=== PATIENT | female | born 1990 | race Caucasian/White ===

== ENCOUNTER 2019-07-30 22:37 | Inpatient (IN) | payer MEDICAID ==
[~2019-07-30] VITALS: Ht 154.9 cm; Wt 62.6 kg
--- NOTE | 2019-07-30 22:30 | NUR ---
UNDERWEAR CUTTER NOTE PT ARRIVED FROM [facility] VIA GURNEY ACCOMPANIED BY AMBULANCE STAFF AND MOTHER. PT IN STABLE CONDITION A/O X1, MINIMALLY COMMUNICATING WITH STAFF. NO SIGNS OF SOB OR DISTRESS, NO INDICATION OF PAIN OR N/V. IV IN L AC #[address] ALL CURRENT NEEDS ATTENDED TO. BED LOW, LOCKED, UPPER RAILS UP, AND CALL LIGHT WITHIN REACH. WILL CONT. TO MONITOR. BODY ASSESSED SKIN INTACT, PT BELONGINGS ACCOUNTED AND SIGNED FOR. NO HOME MEDICATIONS INDICATED FROM [facility].
[2019-07-31] MEDS ORDERED: MAG HYDROX/AL HYDROX/SIMETH 30 ML UDC PO PRN (00:30)
[2019-07-31] MEDS ORDERED: Z GUARD REMEDY 2 OZ OINT TP PRN (00:30)
[2019-07-31] MEDS ORDERED: HYDROCODONE/APAP 5/325MG 1 EACH TABLET PO PRN (00:30)
[2019-07-31] MEDS ORDERED: ACETAMINOPHEN 325 MG TABLET PO PRN (00:30)
[2019-07-31] MEDS ORDERED: MAGNESIUM HYDROXIDE 30 ML UDC PO PRN (00:30)
[2019-07-31] MEDS ORDERED: ONDANSETRON HCL/PF 4 MG/2 ML VIAL IVP PRN (00:30)
[2019-07-31] MEDS ORDERED: ZOLPIDEM TARTRATE 5 MG TABLET PO PRN (00:30)
[2019-07-31] MEDS: IV D5/0.45 NACL 1,000 ML IV PRN ×2 (00:48→17:37)
[2019-07-31 01:10] LABS: BASOPHILS # (AUTO) 0.1 /CMM (0.0-0.2); BASOPHILS % (AUTO) 1.1 % (0.0-2.0); EOSINOPHILS % (AUTO) 0.5 % (0.0-6.0); HEMATOCRIT 35 % (33-45); HEMOGLOBIN 11.1 g/dL (11.5-14.8); LYMPHOCYTES # (AUTO) 1.2 /CMM (0.8-4.8); LYMPHOCYTES % (AUTO) 16.2 % (20.0-44.0); MEAN CORPUSCULAR HGB CONC 32 g/dl (31.0-36.0); MEAN CORPUSCULAR VOLUME 82 fL (82-100); MONOCYTES # (AUTO) 0.5 /CMM (0.1-1.30); MONOCYTES % (AUTO) 6.9 % (2.0-12.0); NEUTROPHILS # (AUTO) 5.6 /CMM (1.8-8.9); NEUTROPHILS % (AUTO) 75.3 % (43.0-81.0); PLATELET COUNT (AUTO) 339 /CMM (150-450); WHITE BLOOD COUNT (AUTO) 7.5 K/uL (4.3-11.0)
[2019-07-31 01:22] LABS: ALBUMIN 3.5 g/dL (3.4-5.0); BILIRUBIN,TOTAL 0.5 mg/dL (0.2-1.0); CALCIUM, SERUM 8.6 mg/dL (8.5-10.1); CREATININE 0.6 mg/dL (0.6-1.3); POTASSIUM 3.5 mmol/L (3.5-5.1); TOTAL PROTEIN, SERUM 6.8 g/dL (6.4-8.2)
[2019-07-31 04:00] VITALS: BP 116/84
--- NOTE | 2019-07-31 06:36 | NUR ---
MOBILITY SPECIALIST NOTE PT IN STABLE CONDITION A/O X1, NOTED IN BED WITH MOM AT BEDSIDE. NO SIGNS OF SOB OR DISTRESS, NO INDICATION OF PAIN OR N/V. IV IN L AC #[address] WITH IVF INFUSING. TELE MONITOR: SR. ALL CURRENT NEEDS ATTENDED TO. BED LOW, LOCKED, UPPER RAILS UP, AND CALL LIGHT WITHIN REACH. WILL CONT. TO MONITOR AND ENDORSE TO NEXT SHIFT FOR ABBY.
--- NOTE | 2019-07-31 07:30 | NUR ---
RN NOTES received patient. asleep, does not open eyes when called, bilateral pupils briskly react to light. patient reacts to pain. not on any form of distress, on room air breathing even and unlabored. sinus tachy on the monitor with hr on the low 100s. iv site on the left arm with ongoing d51/2 ns at 75cc/hr. safety measures observed and maintained. [id number]. bed in low and locked position. call light within reach. patient's mother at bedside. will continue to monitor patient accordingly
[2019-07-31 08:00] VITALS: BP 125/80
--- NOTE | 2019-07-31 09:00 | NUR ---
RN NOTES patient's mom at bedside crying and was asking on why does the patient does not talk. patient aat this time is awake, opens eye spontaneously. patient with episodes of stiffening the body and holding breath. vital signs are within normal ranges. hospitalistSheree DNP made aware. patient monitored accordingly
[2019-07-31] MEDS: PANTOPRAZOLE 40 MG VIAL IV SCH (09:46)
[2019-07-31] MEDS ORDERED: ONDANSETRON HCL/PF 4 MG/2 ML VIAL IV PRN (11:00)
--- NOTE | 2019-07-31 11:00 | NUR ---
RN NOTES patient seen and examined by MADAI Buckley. with orders made and carried out
[2019-07-31] MEDS: LORAZEPAM INJ 2 MG/ML VIAL IV PRN (11:03)
[2019-07-31 12:00] VITALS: BP 124/85
[2019-07-31 16:00] VITALS: BP 105/69
--- NOTE | 2019-07-31 19:31 | NUR ---
RN NOTES endorsed for continuity of care. not on any form of distress. no shortness of breath. no complaints of pain. family at bedside, concerns addressed appropriately. safety measures in plaace. call light within reach
--- NOTE | 2019-07-31 19:45 | NUR ---
ASSEMBLY WORKER NOTES, RECEIVED PATIENT AWAKE IN BED, BREATHING EVEN AND UNLABORED, NO SOB/ACUTE DISTRESS NOTED AT ROOM AIR, NO C/O PAIN OR DISCOMFORT, SINUS TACHY IN TELE MONITOR AT THIS TIME, WITH HR 110S AT THIS TIME, PATIENT NODS HEAD JUST FOR YES/NO QUESTIONS, PATIENT USING GAG REFLEX AT TIMES BUT RESIST TO SPIT SECRETIONS, OM AT BEDSIDE TRYING TO HELP HER TO SPIT IT OUT,AND ENCOURAGED PATIENT TO SPIT SECRETIONS OUT, LEFT AC IV ACCESS, WITH D5 1/2 NS INFUSING ORDERED, NO SIGNS OF INFILTRATION NOTED, PATIENT TOLERATED WELL, CALL LIGHT WITHIN REACH, FAMILY AT BEDSIDE, BED LOCKED AND LOWEST POSITION, WILL CONTINUE TO MONITOR CLOSELY.
[2019-07-31 20:00] VITALS: BP 118/74
[2019-08-01] VITALS: BP 121/73
[2019-08-01 04:00] VITALS: BP 126/80
[2019-08-01] MEDS: IV D5/0.45 NACL 1,000 ML IV PRN ×2 (05:30→20:03)
[2019-08-01 06:36] LABS: BASOPHILS % (AUTO) 0.2 % (0.0-2.0); EOSINOPHILS % (AUTO) 0.5 % (0.0-6.0); HEMATOCRIT 36 % (33-45); HEMOGLOBIN 11.4 g/dL (11.5-14.8); LYMPHOCYTES # (AUTO) 1.3 /CMM (0.8-4.8); LYMPHOCYTES % (AUTO) 18.5 % (20.0-44.0); MEAN CORPUSCULAR HGB CONC 32 g/dl (31.0-36.0); MEAN CORPUSCULAR VOLUME 82 fL (82-100); MONOCYTES # (AUTO) 0.5 /CMM (0.1-1.30); MONOCYTES % (AUTO) 6.7 % (2.0-12.0); NEUTROPHILS # (AUTO) 5.2 /CMM (1.8-8.9); NEUTROPHILS % (AUTO) 74.1 % (43.0-81.0); PLATELET COUNT (AUTO) 360 /CMM (150-450); RED BLOOD CELL COUNT(AUTO) 4.38 MIL/uL (4.0-5.2)
[2019-08-01 06:39] LABS: CALCIUM, SERUM 8.8 mg/dL (8.5-10.1); CREATININE 0.5 mg/dL (0.6-1.3); MAGNESIUM 2.1 mg/dL (1.8-2.4); PHOSPHORUS 3.1 mg/dL (2.5-4.9); POTASSIUM 3.3 mmol/L (3.5-5.1)
[2019-08-01 06:40] LABS: THYROID STIMULATING HORMONE 1.55 uIU/mL (0.358-3.74)
--- NOTE | 2019-08-01 06:52 | NUR ---
INDUSTRIAL BOILERMAKER NOTES, PATIENT AWAKE AT THIS TIME, BREATHING EVEN AND UNLABORED, NO SOB/ACUTE DISTRESS NOTED AT THIS TIME, NO SIGNIFICANT CHANGE IN CONDITION DURING THE NIGHT, IV SITE RIGHT AC PATENT AND INTACT AND IVF INFUSING WELL AND PATIENT TOLERATED WELL, BED LOCKED AND LOWEST POSITION, MOM AT BEDSIDE, WILL ENDORSE TO ONCOMING NURSE FOR CONTINUITY OF CARE.
[2019-08-01 08:00] VITALS: BP 122/83
[2019-08-01] MEDS: PANTOPRAZOLE 40 MG VIAL IV SCH (09:01)
[2019-08-01] MEDS ORDERED: POTASSIUM CHLORIDE 20 MEQ TAB.PRT.SR PO SCH (11:00)
--- NOTE | 2019-08-01 11:00 | NUR ---
RN NOTES PATIENT ABLE TO SWALLOW EFFECTIVELY THE JELLO AND WATER THAT WAS OFFERED TO HER. HOSPITALIST INFORMED AND OKAY WITH ORDER FOR REGULAR DIET
[2019-08-01 12:00] VITALS: BP 127/82
[2019-08-01] MEDS: LORAZEPAM INJ 2 MG/ML VIAL IV PRN ×2 (12:55→22:04)
[2019-08-01] MEDS ORDERED: POTASSIUM CHLORIDE 20 MEQ TAB.PRT.SR PO ONE (13:00)
[2019-08-01] MEDS ORDERED: MULT-24 PO (14:00)
[2019-08-01] MEDS ORDERED: ACET-2605 PO (14:00)
[2019-08-01 16:00] VITALS: BP 109/73
[2019-08-01] MEDS: ESCITALOPRAM OXALATE (10 MG) 10 MG TABLET PO SCH (17:24)
--- NOTE | 2019-08-01 18:00 | NUR ---
RN NOTES PATIENT ABLE TO WALK FROM BED TO THE RESTROOM WITH STABLE GAIT.
--- NOTE | 2019-08-01 19:30 | NUR ---
ANNEALING OVEN OPERATOR NOTES, RECEIVED PATIENT AWAKE IN BED, BREATHING EVEN AND UNLABORED, NO SOB/ACUTE DISTRESS NOTED AT ROOM AIR, NO C/O PAIN OR DISCOMFORT, SINUS TACHY IN TELE MONITOR AT THIS TIME, WITH HR FLUCTUATING, 110S-120S AT THIS TIME, ANSWER YES/NO AND SIMPLE QUESTIONS, LEFT AC IV ACCESS, WITH D5 1/2 NS INFUSING ORDERED, NO SIGNS OF INFILTRATION NOTED, PATIENT TOLERATED WELL, CALL LIGHT WITHIN REACH, MOM AT BEDSIDE, BED LOCKED AND LOWEST POSITION, WILL CONTINUE TO MONITOR CLOSELY.
[2019-08-01 20:00] VITALS: BP 120/82
[2019-08-01] MEDS ORDERED: ARIPIPRAZOLE 5 MG TABLET PO SCH (22:00)
--- NOTE | 2019-08-01 22:20 | NUR ---
RN NOTES, RECEIVED CALL FROM DR HENRY PSYCH AND ORDER TO PLACED ORDER FOR ABILIFY 5MG PO QHS, NOTED AND CARRIED OUT, ALSO INFORMED MD THAT I JUST WITNESS A SITUATION JUST 5 MIN AGO, WHERE THE PATIENT STATED DIDN'T KNOW HER NAME, DENIES THAT MOM AT BEDSIDE WAS HER MOM, DENIES THAT HAVE FAMILY DAD AND BROTHERS, I ASKED HER HER NAME, AND ANOTHER QUESTIONS AND COULDN'T ANSWER THOSE, WHILE SHE WAS TELLING THIS TO MOM, MOM STATED " GET OUT FROM GINGER BODY, GO WITH YOUR OLD FRIENDS, DON'T COME AND OCCUPY GINGER'S BODY, AT THAT TIME I ASKED MOM, WHOM YOU TALKING TO, SHE STATED THAT IT WAS A BAD SPIRIT THAT GET INTO GINGER'S BODY, MOM HAS HER PHONE AND HER SON WAS GIVING MOM A PRAY, MOM WAS REPEATING EVERYTHING, AND TRIED TO PUT HER HAND ON GINGER'S SHOULDER AND GINGER REMOVE MOM'S HAND, AFTER MOM FINISHED PRAYING, GINGER STARTED CRYING INCONSOLABLE, AFTER THAT I TRIED TO CALM HER DOWN, ASKED HER NAME, HER MOMS NAME AND SEVERAL QUESTIONS AND SHE RESPOND CORRECTLY AND IN A NORMAL WAY, SHE DIDN'T DENIED MOM ANYMORE.
[2019-08-02] VITALS: BP 124/77
--- NOTE | 2019-08-02 00:35 | NUR ---
RN NOTES, ENDORSED PATIENT IN STABLE CONDITION TO PORFIRIO ZAVALA FOR CONTINUATION OF CARE.
--- NOTE | 2019-08-02 00:40 | NUR ---
RN OPENING NOTE RECEIVED PATIENT IN BED RESTING WITH HOB ELEVATED AT THIS TIME. FAMILY AT BEDSIDE. BREATHING EVEN AND NON LABORED. NO SOB NOTED. IN NO APPARENT DISTRESS NOTED AT THIS TIME. ABLE TO MAKE NEEDS KNOWN. CALL LIGHT IS WITHIN REACH. WILL CONTINUE TO MONITOR.
[2019-08-02 04:00] VITALS: BP 101/57
--- NOTE | 2019-08-02 06:55 | NUR ---
RN CLOSING NOTE PATIENT IS IN BED RESTING. BREATHING EVEN AND NON LABORED. A&O X2, FORGETFUL. ABLE TO MAKE NEEDS KNOWN. IN NO APPARENT DISTRESS AT THIS TIME. FAMILY AT BEDSIDE. PATIENT REMAINED STABLE THROUGHOUT AT THE NIGHT. ON IV D5 1/2 NS HYDRATION RUNNING AT 75 ML/HR AT THIS TIME. ALL NEEDS ATTENDED AND MET. PATIENT IS KEPT CLEAN, DRY, AND COMFORTABLE. WILL ENDORSE TO AM SHIFT FOR CONTINUATION OF CARE.
[2019-08-02 07:07] LABS: BASOPHILS % (AUTO) 0.3 % (0.0-2.0); EOSINOPHILS % (AUTO) 1.2 % (0.0-6.0); HEMATOCRIT 35 % (33-45); HEMOGLOBIN 11.3 g/dL (11.5-14.8); LYMPHOCYTES # (AUTO) 1.4 /CMM (0.8-4.8); LYMPHOCYTES % (AUTO) 17.9 % (20.0-44.0); MEAN CORPUSCULAR HGB CONC 32 g/dl (31.0-36.0); MEAN CORPUSCULAR VOLUME 82 fL (82-100); MONOCYTES # (AUTO) 0.6 /CMM (0.1-1.30); MONOCYTES % (AUTO) 7.7 % (2.0-12.0); NEUTROPHILS # (AUTO) 5.7 /CMM (1.8-8.9); NEUTROPHILS % (AUTO) 72.9 % (43.0-81.0); PLATELET COUNT (AUTO) 326 /CMM (150-450); RED BLOOD CELL COUNT(AUTO) 4.27 MIL/uL (4.0-5.2); WHITE BLOOD COUNT (AUTO) 7.8 K/uL (4.3-11.0)
[2019-08-02 07:51] LABS: CALCIUM, SERUM 8.9 mg/dL (8.5-10.1); CREATININE 0.6 mg/dL (0.6-1.3); POTASSIUM 3.3 mmol/L (3.5-5.1)
--- NOTE | 2019-08-02 07:53 | NUR ---
RN NOTE RECEIVED PATIENT IN BED RESTING COMFORTABLY WITH HOB ELEVATED. BREATHING NORMAL NO SOB NOTED. RESPIRATION EVEN AND NON LABORED. NO S/S OF DISTRESS NOTED AT THIS TIME. LAC #20 INTACT FLUSHED WELL. SAFETY MEASURES IN PLACE. BED IN LOW AND LOCKED POSITION. CALL LIGHT IS WITHIN REACH. WILL CONTINUE TO MONITOR.
[2019-08-02 08:00] VITALS: BP 107/70
[2019-08-02] MEDS: ESCITALOPRAM OXALATE (10 MG) 10 MG TABLET PO SCH (08:15)
[2019-08-02] MEDS: PANTOPRAZOLE 40 MG VIAL IV SCH (08:15)
--- NOTE | 2019-08-02 10:46 | NUR ---
STAPLE CUTTER completed verification of admission letter requested by pt's father for his employer per his request.
[2019-08-02] MEDS ORDERED: POTASSIUM CHLORIDE 20 MEQ TAB.PRT.SR PO ONE (11:00)
--- NOTE | 2019-08-02 11:21 | NUR ---
RN NOTES POTASSIUM LEVEL WAS 3.3L REPLACED IT WITH K-DUR 20MEQ ORDERED. PATIENT TOLERATED WELL.
--- NOTE | 2019-08-02 12:00 | NUR ---
RN NOTES IV RE-INSERTED ON RAC.
[2019-08-02] MEDS ORDERED: ARIP5TAB10 PO (13:32)
[2019-08-02] MEDS ORDERED: ESCI10TA PO (13:32)
--- NOTE | 2019-08-02 15:00 | NUR ---
ALLERGIST/IMMUNOLOGIST PHYSICIAN NOTES PATIENT IS ALERT IN STABLE CONDITION. PATIENT DENIES ANY PAIN OR DISCOMFORT. BREATHING NORMAL NO SOB NOTED. SKIN INTACT. NO ACUTE DISTRESS NOTED. EXIT CARE PACKET GIVEN.BELONGINGS SENT WITH THE PATIENT. PRESCRIPTION GIVEN TO THE FATHER. ALL PAPER WORK SIGNED AND DATED. ALL NEEDS MET. PATIENT LEFT THE UNIT VIA WHEELCHAIR WITH MANAGER FIXED INCOME TO PRIVATE CAR WITH PARENTS.
[2019-08-02] MEDS ORDERED: ARIPIPRAZOLE 5 MG TABLET PO SCH (22:00)
== END 2019-08-02 14:42 | disposition home or self-care (01) | DRG 750 ==
LOC: TELE1 23:02 → MEDSG1 08-02 10:22
PROVIDERS: ADMIT Nurse Practitioner Acute Care; ATTEND Nurse Practitioner Acute Care
DX: F20.2 Catatonic schizophrenia (principal); G93.40 Encephalopathy, unspecified; F29 Unspecified psychosis not due to a substance or known physiological condition; Z87.891 Personal history of nicotine dependence
CPT/HCPCS: 36415; 80048-TC; 80053-TC; 80061-TC; 83735-TC; 84100-TC; 84443-TC; 85025-TC; 85610-TC; 85730-TC; 87081-TC; 92611-TC; 95819-TC; C9113; G0378; J2060; J2405; J3490